=== PATIENT | female | born 1970 | race Caucasian/White ===

== ENCOUNTER 2020-08-11 02:44 | Emergency (ER) | payer OTHER ==
[~2020-08-11] VITALS: Ht 160 cm; Wt 97.5 kg
[~2020-08-11 02:44] MED LIST: PREPARATION H1 EAC1 RECTAL
[2020-08-11] MEDS ORDERED: WELLBUTRIN SR200 MG PO (03:02)
[2020-08-11] MEDS ORDERED: LAMICTAL200 MG PO (03:02)
[2020-08-11 04:57] VITALS: BP 166/95
== END 2020-08-11 04:58 | disposition home or self-care (01) ==
LOC: ER 02:44
DX: R60.0 Localized edema (principal); Z79.899 Other long term (current) drug therapy; Z88.0 Allergy status to penicillin; Z88.2 Allergy status to sulfonamides

== ENCOUNTER 2020-09-01 14:01 | Inpatient (IN) | payer OTHER ==
[~2020-09-01] VITALS: Ht 160 cm; Wt 97.1 kg
[2020-09-01] VITALS (12 sets, daily range): BP systolic 108–135; BP diastolic 50–99
[~2020-09-01 14:01] MED LIST changes: +LAMICTAL200 MG PO; +WELLBUTRIN SR200 MG PO
[2020-09-01 14:54] LABS: BE(vivo) -4.5 mmol/L (-2 to +3); HCO3 17.9 mmol/L (22.0-26.0); PCO2 26.8 mmHg (35.0-45.0); PO2 71.1 mmHg (80.0-100.0); pH 7.443 (7.360-7.450); sO2 95.2 % (92.0-98.0)
[2020-09-01 15:13] LABS: ABSOLUTE NEUTROPHILS 12.2 thou/uL (1.4-8.2); BASOPHILS 0.4 % (0.0-2.0); EOSINOPHILS 0.2 % (0.0-3.0); HEMATOCRIT 41.1 % (37.0-47.0); HEMOGLOBIN 13.9 gm/dL (12.0-15.0); LYMPHOCYTES 13.1 % (24.0-44.0); MCH 29.4 pg (26.0-34.0); MCHC 33.8 g/dL (28.0-37.0); MONOCYTES 8.1 % (1.0-8.0); PLATELET COUNT 307 thou/uL (150-400); POLYS 78.2 % (36.0-66.0); RBC 4.73 mil/uL (4.20-5.00); RDW 12.1 % (10.5-14.5); WBC 15.6 thou/uL (4.0-11.0)
[2020-09-01 15:29] LABS: ALBUMIN 3.4 g/dL (3.4-5.0); TOTAL BILIRUBIN 0.5 mg/dL (0.2-1.0); TOTAL PROTEIN 7.8 g/dL (6.4-8.2); TROPONIN-I 0.41 ng/mL (<0.06)
--- NOTE | 2020-09-01 19:28 | EKG ---
[facility] [place] [address] ELECTROCARDIOGRAM REPORT Name: MORE GERBER Room #: 241-P ADM IN M.R.#: [id number] Admission: 09/01/20 Attend Phys: Izzy Moss MD Discharge: Date of : 70 Report #: [id number] THIS REPORT FOR: cc: Ernesto Perez MD, Jeffrey A. MD Lundgren, Craig H. MD [facility] ~ THIS REPORT FOR: //name// [facility] ED Test Date: 2020-09-01 Test Time: 14:39:06 Pat Name: MORE GERBER Department: Room: 241 Gender: F Mica Washer Gluer: [id number] : 1970 Requested By: Zuleima Kam Order Number: [id number] MD: Naun Doty Measurements Intervals [place] Rate: 153 P: 81 UT: 106 QRS: 148 QRSD: 109 T: 0 QT: 284 QTc: 454 Interpretive Statements Sinus tachycardia Right axis deviation No previous ECG available for comparison Electronically Signed On 09-01-2020 19:28:37 TELEGRAPH MESSENGER by Naun Doty [email or web address] <ELECTRONICALLY SIGNED> By: Naun Doty MD, FAC 09/01/201927 1439 1439 Naun Doty MD, [facility] /EPI
--- NOTE | 2020-09-01 19:38 | NUR ---
PT BROUGHT TO ICU AT 1845, ASSESSMENT DONE AND PT SETTLED IN ROOM, POLICIES AND PROCEDURES WERE EXPLAINED. PT RESTING COMFORTABLE. REPORT GIVEN TO NIGHT RN. NO ACUTE ISSUES. CARDIZEM GTT IN PLACE AND NS. NO HEPARIN GTT UPON ARRIVAL.
[2020-09-01 19:43] LABS: HEMATOCRIT 40.5 % (37.0-47.0); HEMOGLOBIN 13.7 gm/dL (12.0-15.0); MCH 29.5 pg (26.0-34.0); MCHC 33.8 g/dL (28.0-37.0); MCV 87.3 fL (80.0-100.0); RBC 4.64 mil/uL (4.20-5.00); RDW 12.1 % (10.5-14.5)
[2020-09-01 20:56] LABS: PROTIME 10.5 Seconds (9.3-11.4)
[2020-09-02] VITALS (27 sets, daily range): BP systolic 109–135; BP diastolic 54–96
[2020-09-02 05:29] LABS: ABSOLUTE NEUTROPHILS 6.3 thou/uL (1.4-8.2); BASOPHILS 0.6 % (0.0-2.0); HEMATOCRIT 36.9 % (37.0-47.0); HEMOGLOBIN 12.6 gm/dL (12.0-15.0); LYMPHOCYTES 14.1 % (24.0-44.0); MCHC 34.2 g/dL (28.0-37.0); MCV 87.7 fL (80.0-100.0); MONOCYTES 1.5 % (1.0-8.0); PLATELET COUNT 223 thou/uL (150-400); POLYS 83.8 % (36.0-66.0); RBC 4.21 mil/uL (4.20-5.00); RDW 12.2 % (10.5-14.5); WBC 7.5 thou/uL (4.0-11.0)
[2020-09-02 05:58] LABS: CALCIUM 8.8 mg/dL (8.5-10.1); CREATININE 0.8 mg/dL (0.6-1.0); PHOSPHORUS 1.9 mg/dL (2.5-4.9); TOTAL BILIRUBIN 0.4 mg/dL (0.2-1.0); TOTAL PROTEIN 7.4 g/dL (6.4-8.2)
[2020-09-02 06:03] LABS: POTASSIUM 4.6 mmol/L (3.5-5.1)
[2020-09-02 07:10] LABS: SGOT 36 U/L (15-37); SGPT 42 U/L (30-65); TOTAL BILIRUBIN 0.4 mg/dL (0.2-1.0); TOTAL PROTEIN 7.5 g/dL (6.4-8.2)
[2020-09-02 07:27] LABS: DIRECT BILIRUBIN < 0.1 mg/dL (<0.1-0.2)
--- NOTE | 2020-09-02 07:56 | NUR ---
Report received at 1900. Care assumed. Assessments done. Pt denies pain or disocmfort. Continues on O2 at 6l via NC. Reports shortsness of breath with activity. >>>0024 Pt helped to bedside commode, no SOB noted. O2 titrated to 4l. pt is tolerating without complications. >>>0500 Dr James torres on pt, updated on pt condition.See new orders. O2 titrated to 3l NC. Pt is tolerating. willcontinueto monitor.
--- NOTE | 2020-09-02 10:02 | HC ---
[facility] [place] [address] CONSULTATION Name: MORE GERBER Room #: 241-P ADM IN M.R.#: [id number] Admission: 09/01/20 Attend Phys: Izzy Moss MD Discharge: Date of : 70 Report #: [id number] THIS REPORT FOR: cc: Ernesto Perez MD, Jeffrey A. MD Barry, Joseph W. MD ~ DATE OF SERVICE: 09/02/2020 INFECTIOUS DISEASE CONSULTATION ATTENDING PHYSICIAN: Dr. Moss. REASON FOR EVALUATION: COVID-19 infection, complicated by pneumonitis and bilateral pulmonary emboli. HISTORY OF SUBJECTIVE: Chart reviewed, the patient examined. This is a 49-year-old woman without significant medical history, does have urine fibroids for which she takes oral contraceptives; however, she has not been well over the course of the last two to two and half weeks has been ill, was confirmed to have a positive COVID test. She was quarantining, she had biphasic illness seemed to have improved over recent days, had increasing difficulty breathing, some cough that has been nonproductive. It is not clear if she had any significant fevers. She has been more fatigued and weak, prompted evaluation. ABGs borderline hypoxemia on 2 liters with pO2 of 71. She did have elevated white count of 15.6. Chest x-ray was otherwise unremarkable; however, followup CT due to elevated D-dimer of 17.98, showed bilateral pulmonary emboli and did have patchy infiltrates as well consistent with COVID pneumonia. This prompted initiating therapy with heparin. She was started on remdesivir, aztreonam, azithromycin. She is generally lucid. She is on supplemental oxygen on 5 liters per nasal cannula. ALLERGIES: LISTED TO PENICILLIN AND SULFA. CURRENT MEDICATIONS: Include lamotrigine, azithromycin, pantoprazole, insulin, aztreonam, methylprednisolone, single dose of remdesivir. PAST MEDICAL HISTORY: As described above, uterine fibroids, history of bipolar. SOCIAL HISTORY: Nonsmoker, no ethanol. FAMILY HISTORY: Noncontributory. REVIEW OF SYSTEMS: Otherwise, unremarkable. [facility] [address] [place] [address] CONSULTATION Name: MORE GERBER Room #: 241-P [facility] IN ..#: [id number] Admission: 09/01/20 Attend Phys: Izzy Moss MD Discharge: Date of : 70 Report #: [id number] PHYSICAL EXAMINATION: GENERAL: She is alert, cooperative, appropriate. She is in ____ moderate distress. She is lucid. VITAL SIGNS: Temperature 98.3, pulse 113, respirations 23, blood pressure 109/65. SKIN: Warm, dry, no rashes. HEENT: Normocephalic. Extraocular muscles are intact. NECK: Supple. LUNGS: Generally clear breath sounds. HEART: Regular. I do not appreciate any murmur. ABDOMEN: Soft, nontender, nondistended. EXTREMITIES: No cyanosis. GENITOURINARY AND RECTAL: Deferred. LABORATORY DATA: Lactic acid most recently 1.6 is down from 2.0. CBC from yesterday white count of 13.0, H and H 13.7 and 40.5, platelets 276. CT chest, PE protocol noted above, large bilateral pulmonary emboli with right heart strain, multifocal mild alveolar pulmonary infiltrates with ground glass opacity throughout the lungs bilaterally. Procalcitonin 0.1. D-dimer of 17.98. ProBNP of 1960. Electrolytes: Sodium 137, potassium 4.0, chloride 101, bicarbonate is 20, anion gap of 16, BUN and creatinine 9 and 1.0 and glucose of 133. LFTs unremarkable. Albumin 3.4, total protein 7.8. ASSESSMENT: COVID-19 infection, complicated by pneumonitis and pulmonary emboli, although its perhaps outside the window, I think it is not unreasonable to continue remdesivir. We will continue the antibacterials as well. Try to collect a sputum sample, although she states it is generally clear sputum. At this point, she is not overtly toxic, but certainly at risk for additional complications. Thank you, we will follow. <ELECTRONICALLY SIGNED> By: Miky Ramirez MD 09/02/20 1002 0543 0941 Miky Ramirez MD /nt
--- NOTE | 2020-09-02 14:43 | NUR ---
DR. BALDERAS PRESENT. PLAN TO START PO CARDIZEM, THEN TITRATE OFF IV CARDIZEM. RESP LABORED WITH SPEECH. WHEN UP TO TOILET, THEN RETURNING TO BED, PT AWARE OF LABORED RESP. 3L/NC.
--- NOTE | 2020-09-02 20:48 | NUR ---
titrated cardizem from 5-10mg to keep hr in lower 100's. heparin infusing. when getting up to toilet, increasing 02 to 8L/nc temporarily, then returning flow to 3L/nc. shortness of air/ labored breathing improving with speech and when getting up to toilet. pulling 1,300 on incentive spirometer. progressing. remaining in icu however she is cc tele status.
[2020-09-02] MEDS ORDERED: AUROVELA 24 FE1 EACH PO (20:55)
[2020-09-03 05:53] LABS: CALCIUM 9.2 mg/dL (8.5-10.1); CREATININE 0.9 mg/dL (0.6-1.0); DIRECT BILIRUBIN 0.1 mg/dL (<0.1-0.2); PHOSPHORUS 2.9 mg/dL (2.5-4.9); TOTAL BILIRUBIN 0.2 mg/dL (0.2-1.0); TOTAL PROTEIN 7.3 g/dL (6.4-8.2)
--- NOTE | 2020-09-03 07:52 | NUR ---
Patient slept on/off through the night. Neuro remains intact. Had several long conversations about her recent history, plan of care, and discharge planning. Heart rate and rhythm stable sinus tach, no aflutter or ectopy. Continues on Cardizem gtt at 10 mg/hr. Heparin gtt continues per DVT/PE protocol. Labs drawn from AC IV, but were clotted, so still waiting on APTT result. No fever. Patient continues to be breathless with talking. Adequate oxygenation on 3-4 L O2. When patient gets up to BSC, O2 increased to 6L with activity. It takes a minute for her to recover after activity. Voided adequte amounts on BSC. Patient is progressing towards plan of care. See documentation on interventions for assessment details.
[2020-09-03 07:59] VITALS: BP 123/76
[2020-09-03 11:54] VITALS: BP 117/76
--- NOTE | 2020-09-03 14:10 | NUR ---
chart review, covid +, unable to visit with pt rt conserving on ppe. cm visited with spouse jeanine, intro to cm and dcp. spouse reported " live in house, 5 steps to enter home, 25 steps up to bedrooms. independent home. 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 no medical equip. there is basement but she wont have any needs to go down there. laundry room on 1st floor. manange her own medication. no rehab or hh in past"/jeanine. will cont following as needed for dc needs.
[2020-09-03 16:10] VITALS: BP 117/81
--- NOTE | 2020-09-03 19:15 | NUR ---
PT SPENT A MAJORITY OF THE DAY OUT OF BED IN THE CHAIR. PT AMBULATED IN ROOM WITH PT. TOLERATING REGULAR DIET. PT STATES SHE STILL FEELS SHORT OF AIR WITH ACTIVITY. O2 REQUIREMENTS UNCHANGED @ 4L/MIN VIA NC AT REST AND 6L/MIN VIA NC WITH ANY ACTIVITY. PT REMAINS ON CARDIZEM @ 10MG/HR AND HEPARIN DRIP @ 1880 UNITS/HR. PTT WAS THERAPEUTIC @ 1530. WILL RECHECK PTT IN AM PER PROTOCOL. PT PROGRESSING TOWARD GOALS AND IS OPTIMISTIC AND IN GOOD SPIRITS.
[2020-09-03 20:17] VITALS: BP 133/88
--- NOTE | 2020-09-04 03:12 | NUR ---
ASSUMED CARE OF PATIENT AT 1900. VSS, AFEBRILE. C/O NECK/BACK PAIN NOT IMPROVING. DOES NOT TAKE PRESCRIPTION PAIN MEDICATION AT HOME. ORDER OBTAINED FOR TYLENOL AND MUSCLE RELIEF CREAM. REPOSITIONED IN BED. CARDIZEM GTT TITIRATED OFF BY 0100. PATIENT EXPRESSING SOME ANXIETY. DISCUSSED OPTIONS. SETTLED ON HOT TEA, WILL MONITOR. US OF LOWER EXTREMETIES DONE, RESULTS CALLED TO DR ENRIQUEZ.
[2020-09-04 04:23] VITALS: BP 133/76
[2020-09-04 04:56] LABS: HEMATOCRIT 35.6 % (37.0-47.0); HEMOGLOBIN 11.8 gm/dL (12.0-15.0); MCH 29.4 pg (26.0-34.0); MCHC 33.1 g/dL (28.0-37.0); MCV 88.8 fL (80.0-100.0); RDW 12.4 % (10.5-14.5); WBC 16.2 thou/uL (4.0-11.0)
[2020-09-04 05:41] LABS: ALBUMIN 2.8 g/dL (3.4-5.0); ANION GAP 12 mmol/L (7-16); BUN 17 mg/dL (7-18); CALCIUM 8.5 mg/dL (8.5-10.1); CHLORIDE 108 mmol/L (98-107); CO2 21 mmol/L (21-32); CREATININE 0.9 mg/dL (0.6-1.0); DIRECT BILIRUBIN < 0.1 mg/dL (<0.1-0.2); GLUCOSE 200 mg/dL (74-106); PHOSPHORUS 2.3 mg/dL (2.5-4.9); SGOT 15 U/L (15-37); SGPT 46 U/L (30-65); SODIUM 141 mmol/L (136-145); TOTAL BILIRUBIN 0.2 mg/dL (0.2-1.0); TOTAL PROTEIN 6.6 g/dL (6.4-8.2)
[2020-09-04 08:31] VITALS: BP 147/99
[2020-09-04 12:30] VITALS: BP 166/97
--- NOTE | 2020-09-04 12:45 | NUR ---
@ 1200 PT TRANSFERRED VIA W/C WITH O2, MONITOR AND IV TO ROOM 350 ON 3W. PT TOLERATED ACTIVITY WITH MINIMAL DYSPNEA. PT ASSISTED TO TOILET UPON ARRIVAL TO NEW ROOM AND ASSISTED WITH HANDWASHING AND TO BED. MELANIA COLLINS AT BEDSIDE TO RECEIVE PT. LUNCH TO BE TAKEN UPSTAIRS WHEN AVAILABLE.
--- NOTE | 2020-09-04 16:10 | NUR ---
TRANSFERRED FROM ICU. AAOX4. NSR PER TELE. DENIES CP BUT HAS SOA WITH ACTIVITY. NOBODY ABLE SO FAR TO DRAW HER APTT. FALL PRECAUTIONS IN PLACE.
[2020-09-04 16:28] VITALS: BP 152/95
--- NOTE | 2020-09-04 17:44 | NUR ---
MARLIN RN, IV TEAM, STATES MIDLINE, D/T PE'S AND DVT, IS CONTRAINDICATED. SHE RECOMMENDS TICC LINE INSERTION.
--- NOTE | 2020-09-04 18:29 | NUR ---
VASCULAR ACCESS ASSESSED PT FOR LAB DRAW WITH USG. VESSELS TOO DEEP. ALSO DISCUSSED REASON PT CANNOT HAVE MIDLINE OR PICC DUE TO VERY HIGH RISK FOR ADDITIONAL DVT IN ARMS. VERBALIZED UNDERSTANDING DUE TO CURRENT DVT & PE.
[2020-09-04 19:12] VITALS: BP 139/90
--- NOTE | 2020-09-04 20:53 | NUR ---
PER PHARMACY REQUEST CALLED PROVIDER TO ASK HER TO CALL PHARMACY TO CLARIFY ANTICOAGULANT MEDICATIONS. PT SITTING UP IN BED, WATCHING TV WORKING ON COMPUTER. SMILING. SOA WITH TALKING, 02 PER NC 4L. PALE SKIN TONE. PT CALLS FOR ASSISTANCE.
[2020-09-05 03:42] VITALS: BP 140/100
[2020-09-05 05:59] LABS: ALBUMIN 2.8 g/dL (3.4-5.0); CALCIUM 8.4 mg/dL (8.5-10.1); CREATININE 0.8 mg/dL (0.6-1.0); DIRECT BILIRUBIN 0.1 mg/dL (<0.1-0.2); PHOSPHORUS 2.8 mg/dL (2.5-4.9); TOTAL BILIRUBIN 0.2 mg/dL (0.2-1.0); TOTAL PROTEIN 6.2 g/dL (6.4-8.2)
[2020-09-05 07:16] VITALS: BP 134/89
[2020-09-05 11:42] VITALS: BP 133/87
--- NOTE | 2020-09-05 12:25 | HC ---
[facility] [place] [address] CONSULTATION Name: MORE GERBER Room #: 350-P ADM IN .R.#: [id number] Admission: 09/01/20 Attend Phys: Izzy Moss MD Discharge: Date of : 70 Report #: [id number] THIS REPORT FOR: cc: Ernesto Perez MD, Jeffrey A. MD Barnthouse, Michael J. MD ~ HISTORY OF PRESENT ILLNESS: This is a 49-year-old who has a history of uterine fibroids and heavy menstrual cycles. She has been on oral contraception for the last 3-4 months to control of her heavy cycles and was scheduled later this month for hysterectomy at [facility]. She was admitted on 09/01/2020 with acute respiratory distress after having had a positive COVID test. Evaluation has shown pulmonary embolism as well as pneumonia. She also had deep vein thrombophlebitis in her left popliteal and posterior tibial vein. She has also been diagnosed with atrial flutter. She had an increased D-dimer. On admission, her hemoglobin was 13.9, her most recent hemoglobin was 11.8. She has had elevated blood sugars on admission. Her chart and history have been reviewed. From a gynecologic point of view, she has never been . She was just recently diagnosed with uterine fibroids. According to the patient, her uterine size was 12 cm with 2 uterine fibroids, the largest measuring 8 cm. She has had no other gynecologic concerns. She did take control pills many years ago and had no complications. She has a family history of factor V. The patient tested negative for factor V. She has had normal Pap smears. She has no family history of any gynecologic malignancies. She was just today moved out of the Intensive Care Unit to room #350 and is scheduled to be discharged later this week. She indicates she is due to start a new package of control pills at this time. She denies any other known medical problems, has had no previous history of any thrombophlebitis or pulmonary embolism. She has currently been heparinized and will be switched over to oral anticoagulation. IMPRESSION: From a gynecologic point of view, has a history of uterine fibroids with heavy menstrual cycles, although she had stable hemoglobin on admission for the last 3-4 months, she has been on continuous oral contraception. Concern is whether her thrombophlebitis was secondary to her COVID infection or whether it was possibly related to her starting oral contraception. General recommendation is woman with history of thrombophlebitis and pulmonary embolism. We would not recommend taking combination control pill of estrogen and progesterone. However, in the short term as long as she is well anticoagulated, I feel like she could continue on her current control pills that is controlling her heavy bleeding until she is able to undergo her hysterectomy, which will most likely be delayed secondary to her current medical issues. Her option would be to switch her to a progesterone only oral contraception of norethindrone daily on a continuous basis. I have recommended that she follow up with her primary clinical trial leader upon dismissal for further evaluation and treatment. Thank you for allowing me to participate in the patient's care, if we can be of [address] [address] CONSULTATION Name: MORE GERBER Room #: 350-P ADM IN M.R.#: [id number] Admission: 09/01/20 Attend Phys: Izzy Moss MD Discharge: Date of : 70 Report #: [id number] any further assistance while she is in the hospital. Please feel free to contact me. <ELECTRONICALLY SIGNED> By: Chepe Giles MD 09/05/20 1225 1359 1414 Chepe Giles MD /nt
--- NOTE | 2020-09-05 13:31 | NUR ---
ALFREDO reviewed chart and spoke with nursing and attending physician. Pt was transferred to from ICU and remains in Enhanced Isolation due to COVID-19. Pt is afebrile and on 4L of O2. Pt is on IV abx and IV steroids. Pt has completed course of Remdesivir. Discharge home is anticipated in 1-2 days. ALFREDO spoke with pt via phone to discuss discharge needs: home O2. Pt had rest/exercise oximetry completed earlier today and needs 2L of O2 with activity. ALFREDO provided options for [employer]. No preference voiced. ALFREDO confirmed pt's home address and phone number. SW faxed referral to [facility] and notified [facility] liaison of new referral. Need insurance verified. Pt may discharge home on Eliquis or Xarelto. Pt declines need for home health at this time. ALFREDO is following to assist as needed with discharge planning.
[2020-09-05 15:33] VITALS: BP 145/94
--- NOTE | 2020-09-05 18:36 | NUR ---
PATIENT IS ALERT ORIENTED X4. PLEASANT WITH CARE. DOES NOT SEEM TO BE IN PAIN OR DISTRESS. RESPIRATIONS ARE EVEN AND UNLABORED. WILL CONT WITH PLAN OF CARE.
[2020-09-05 19:22] VITALS: BP 141/101
--- NOTE | 2020-09-05 23:56 | NUR ---
PT REQUESTED TO SHOWER, PROVIDED CHAIR TO REST IN AND IV SITES COVERED. PT SOA WITH EXERTION AND TALKING. O2 PRN 2L AFTER AMBULATION OR ACTIVITY. IV MEDS PROVIDED. LOVENOX GIVEN. PT VERBALIZED PLAN FOR DC IN AM. LUNGS DIMINISHED.
[2020-09-06 03:20] VITALS: BP 157/93
[2020-09-06 06:44] LABS: CALCIUM 8.8 mg/dL (8.5-10.1); CREATININE 0.9 mg/dL (0.6-1.0); DIRECT BILIRUBIN 0.1 mg/dL (<0.1-0.2); PHOSPHORUS 3.1 mg/dL (2.5-4.9); POTASSIUM 3.8 mmol/L (3.5-5.1); TOTAL BILIRUBIN 0.3 mg/dL (0.2-1.0); TOTAL PROTEIN 6.6 g/dL (6.4-8.2)
[2020-09-06 07:50] VITALS: BP 152/90
--- NOTE | 2020-09-06 09:34 | 2DMMODE ---
[facility] [place] [address] 2 D/M-MODE ECHOCARDIOGRAM Name: MORE GERBER Room #: 350-P ADM IN M.R.#: [id number] Admission: 09/01/20 Attend Phys: Izzy Moss MD Discharge: Date of : 70 Report #: [id number] THIS REPORT FOR: cc: Ernesto Perez MD, Jeffrey A. MD Santiago, Patrick MD [facility] ~ APPROVED REPORT Study performed: 09/03/2020 09:57:31 EXAM: Comprehensive 2D, Doppler, and color-flow Echocardiogram Patient Location: ICU Room #: 241 Status: routine BSA: 1.97 HR: 109 bpm BP: 123/76 mmHg Rhythm: Tachycardia Other Information Study Quality: Adequate Indications Pulmonary Embolism Pulmonary Hypertension Covid 19 2D Dimensions RVDd: 47.04 mm IVSd: 10.97 (7-11mm) LVOT Diam: 19.18 (18-24mm) LVDd: 37.49 mm PWd: 11.45 (7-11mm) Ascending Ao: 23.75 (22-36mm) LVDs: 24.12 (25-40mm) Aortic Root: 28.76 mm IVC: 26.00 mm Tricuspid Valve TR Peak Diego.: 3.37 m/s TR Peak Gr.: 45.37 mmHg PA Pressure: 55.00 mmHg Left Ventricle The left ventricle is normal size. There is normal LV segmental wall motion. There is normal left ventricular wall thickness. The left ventricular systolic function is normal. The left ventricular [facility] [address] [place] [address] 2 D/M-MODE ECHOCARDIOGRAM Name: MORE GERBER Shayne Room #: 350-P ADM IN M.R.#: [id number] Admission: 09/01/20 Attend Phys: Izzy Moss, Discharge: Date of : 70 Report #: [id number] ejection fraction is within the normal range. LVEF is 55-60%. Grade I - abnormal relaxation pattern. Right Ventricle Right ventricle is dilated. The right ventricular systolic function is normal. Atria The left atrium size is normal. Right atrium is dilated. Aortic Valve The aortic valve is normal in structure. No aortic regurgitation is present. There is no aortic valvular stenosis. Mitral Valve The mitral valve is normal in structure. Trace mitral regurgitation. No evidence of mitral valve stenosis. Tricuspid Valve The tricuspid valve is normal in structure. There is mild tricuspid regurgitation. Estimated PAP 55mmHg. There is moderate pulmonary hypertension. Pulmonic Valve The pulmonary valve is normal in structure. Trace pulmonic regurgitation. Great Vessels The aortic root is normal in size. IVC is dilated and collapses <50% with inspiration. Pericardium There is no pericardial effusion. <Conclusion> Normal left ventricle size, wall thickness and systolic function Ejection fraction 60% Grade 1 diastolic dysfunction Right atrium mildly dilated with normal systolic function Right atrium mildly dilated Mild tricuspid valve insufficiency Moderate pulmonary hypertension [facility] [address] [place] [address] 2 D/M-MODE ECHOCARDIOGRAM Name: MORE GERBER Room #: 350-P ADM IN M.R.#: [id number] Admission: 09/01/20 Attend Phys: Izzy Moss, Discharge: Date of : 70 Report #: [id number] PA systolic pressure estimated at 55 mmHg No pericardial effusion <ELECTRONICALLY SIGNED> By: Agustin Valentine MD, FACC 09/03/20 1245 1245 44 Agustin Valentine MD, FACC /INF
[2020-09-06 12:25] VITALS: BP 142/80
--- NOTE | 2020-09-06 14:52 | NUR ---
on-going assessment: CM REVIEWED CHART AND SPOKE WITH ATTENDING WHO STATES PT WILL LIKELY STAY UNTIL TOMORROW. PT IS NEEDING 2L OXYGEN WITH EXERTION. ALFREDO YESTERDAY SENT SCRIPT TO [facility] AND THEY DROPPED OFF A PORTABLE TANK FOR PT IN HER ROOM. WILL SEE HOW PATIENT DOES OVERNIGHT AND DETERMINE OXYGEN NEEDS. CM WILL CONTINUE TO FOLLOW TO ASSIST NEEDED.
[2020-09-06 15:52] VITALS: BP 139/86
--- NOTE | 2020-09-06 17:00 | NUR ---
IN PLEASANT MOOD. PLAN ON GOING HOME TOMORROW PER DR VALENTINO. PATIENT HAS BEEN OFF O2 MOST OF THE DAY. WILL CONT WITH PLAN OF CARE.
[2020-09-06 19:25] VITALS: BP 149/96
--- NOTE | 2020-09-07 01:37 | NUR ---
ASSESSED AT START OF SHIFT. PT A&OX4 CONCERN ABOUT DISCHARGE PLANS. INSTRUCTED PT ABOUT PROGRESS TO SPEND THE NIGHT AND MONITOR O2. PT 95 -96% ON RA. DENIES PAIN, DIZZINESS, N/V. AD ZACKERY IN ROOM. LOVENOX SHOT GIVEN. CALL LIGHT AT REACH AND WILL CONT TO MONITOR.
[2020-09-07 04:19] VITALS: BP 149/96
[2020-09-07 06:04] LABS: HEMOGLOBIN 13.1 gm/dL (12.0-15.0); MCHC 33.5 g/dL (28.0-37.0); MCV 86.4 fL (80.0-100.0); RBC 4.52 mil/uL (4.20-5.00); RDW 12.6 % (10.5-14.5); WBC 11.7 thou/uL (4.0-11.0)
[2020-09-07 07:40] VITALS: BP 146/100
[2020-09-07] MEDS ORDERED: ZINC SULFATE 2220 MG PO (12:51)
[2020-09-07] MEDS ORDERED: VITAMIN D325 MC1 PO (12:51)
[2020-09-07] MEDS ORDERED: PROTONIX 20 MG20 M1 PO (12:51)
[2020-09-07] MEDS ORDERED: XARELTO20 MG PO (12:51)
[2020-09-07] MEDS ORDERED: CARDIZEM CD 18180 M3 PO (12:51)
[2020-09-07] MEDS ORDERED: ACEROLA C500 MG PO (12:51)
[2020-09-07] MEDS ORDERED: CEFDINIR300 MG PO (12:51)
[2020-09-07] MEDS ORDERED: XARELTO15 MG PO (12:51)
[2020-09-07] MEDS ORDERED: VITAMIN B-1100 M2 PO (12:51)
[2020-09-07 13:24] VITALS: BP 146/100
--- NOTE | 2020-09-07 14:22 | NUR ---
ON-GOING ASSESSMENT: CM REVIEWED CHART AND SPOKE WITH ATTENDING. PT HAS ORDERS TO D/C TODAY AND WANTED TO MAKE SURE HER MEDICATION XARELTO IS HELPED COVERED BY HER INSURANCE. CM GOT A COPY OF THE SCRIPT AND SENT TO PTS PHARMACY ([facility] [place]). CM RECEIVED A CALL BACK FROM PHARMACIST WHO REPORTS IT WILL COST TOTAL OF ABOUT 262 FOR BOTH SCRIPTS WRITTEN. MATT ATTEMPTED TO CONTACT PT ON UNIT BUT BEDSIDE RN REPORTS THAT PATIENT HAD LEFT THE UNIT HER CAME AND SAID THEY HAVE THE SAME INSURANCE AND HE IS ON THAT MEDICATION AND INSURANCE HELPS COVER IT AND THEY WILL BE ABLE TO AFFORD IT. CM ATTEMPTED TO REACH PT ON HER CELL BUT NO ANSWER. CM ALSO LEFT VM FOR HER . [facility] HAD PREVIOUSLY DELIVERED A PORTABLE OXYGEN TANK FOR PATIENT TO TAKE HOME IF NEEDING OXYGEN WITH EXERTION. PER BEDSIDE RN PT IS NOT REQUIRING THE HOME OXYGEN AND HAS BEEN ON ROOM AIR. PT REPORTS SHE HAS BEEN OFF OXYGEN FOR 48 HOURS AND DOES NOT WANT THE HOME OXYGEN OR NEED ANY LONGER.
--- NOTE | 2020-09-07 16:32 | NUR ---
PATIENT DISCHARGED HOME EARLIER. SHE WAS ALRT ORIENTED X4. GERALD NOT COMPLAIN OF PAIN OR DISTRESS. DISCHARGED HOME WITH PRIVATE CAR.
--- NOTE | 2020-09-09 16:58 | HC ---
[facility] [place] [address] CONSULTATION Name: MORE GERBER Room #: 350-[facility] IN M.R.#: [id number] Admission: 09/01/20 Attend Phys: Izzy Moss MD Discharge: 09/07/20 Date of : 70 Report #: [id number] THIS REPORT FOR: cc: Ernesto Perez MD, Jeffrey A. MD McKittrick, Richard James MD ~ REQUESTING PHYSICIAN: Dr. Adolfo Michelle and ____. REASON FOR CONSULTATION: Finding of submassive saddle emboli with right heart strain and also finding of left popliteal DVT. HISTORY OF PRESENT ILLNESS: The patient is a 49-year-old female who was having some shortness of breath about a week before being admitted to the hospital. She tested COVID positive after loss of smell. She was admitted on 09/01. She is in ICU on high flow oxygen and has not greatly improved. She is currently on Lovenox. No prior clots. Before that, she had an ultrasound of her leg about 2 weeks prior to admission, which have been negative, the one here did show a clot. She had been on oral contraceptives about the last 3-4 months to help control her bleeding and delay surgery until after the COVID pandemic settles down. Dr. Chepe Giles had seen the patient, mentioned that it might be laguerre and I would agree to switch to a progesterone-only medication. Note that her period has been much better since she has been on this medication. The patient, at this time, denies any fevers, chills, nausea, vomiting, blood in urine or stool, arm or leg swelling, skin rash or bleeding. PAST MEDICAL HISTORY: Notable for the bipolar, the uterine fibroids, the bleeding. In the hospital, she has had some atrial flutter. She had a saddle embolus and also had a left popliteal DVT. 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 Her ____ was a system integration engineer. He has factor V Leiden and has had clots lifelong, but it sounds like perhaps a lower dose of Xarelto. FAMILY HISTORY: Father had factor V Leiden and clots. Mother has rheumatoid arthritis. I think she has several siblings, no specific illnesses. No children. No pets. In the past, she has enjoyed quilting. MEDICATIONS: At this time currently include dexamethasone 6 mg daily, IV cefdinir 300 mg b.i.d., Lovenox 100 mg b.i.d., Tylenol p.r.n., bupropion 200 mg at bedtime, lamotrigine 200 mg at bedtime, diltiazem 120 mg daily, thiamine 100 mg daily, cholecalciferol 1000 units daily, vitamin C 500 mg daily, pantoprazole 20 mg daily, insulin on a sliding scale, zinc 200 mg t.i.d., Dextrose and other PRNs. LABORATORY DATA: Significant and include electrolytes and creatinine and liver [address] [address] CONSULTATION Name: MORE GERBER Shayne Room #: 350-P DIS IN M.R.#: [id number] Admission: 09/01/20 Attend Phys: Izzy Moss MD Discharge: 09/07/20 Date of : 70 Report #: [id number] functions that are normal. Baseline INR and APTT were near normal. White count currently 11.7, hemoglobin 13.1, platelets 273, MCV 86.4. Differential mostly normal, antithrombin III 111, normal; protein C activity 133, normal; protein S 61 slightly low below, I think at 65. APC resistance 2.7, normal. DRVVT pending. Anticardiolipin IgM mildly elevated at 21. Anticardiolipin IgG less than 9, normal. Beta 2 microglobulin pending. Lupus reference pending. Imaging of note here included ultrasound of lower extremities find acute-appearing DVT involving left popliteal vein and posterior tibial vein, negative right leg. CTA done on 09/01, described as showing large bilateral pulmonary embolus with right heart strain, ____ alveolar pulmonary infiltrates. ADDENDUM: Described a cystic lesion in the proximal right humerus, likely benign process. They recommended follow up right shoulder in 6 months. PHYSICAL EXAMINATION: GENERAL: The patient appears her stated age. MOOD: She is pleasant, conversant. NEUROLOGIC: Speech and thought pattern normal. Moving all extremities. LUNGS: Appear clear anteriorly. No rhonchi, wheezes or stridor. LYMPHATICS: No enlarged lymph nodes in the supraclavicular, cervical, axillary or inguinal region. ABDOMEN: Slightly obese. No masses. EXTREMITIES: Without clubbing, cyanosis or edema. ASSESSMENT AND PLAN: 1. Large bilateral and saddle embolus with right heart strain. Agree with anticoagulation, should probably receive at least 6 if not considering 12 months of therapy. Also depends whether we find a provoked or an ongoing cause. We will await additional hypercoagulable workup. Could transition NOAC, would also consider switching to progesterone-only hormones if possible. Also, we will ask the nurses place this in the MARS, I do not see it listed. 2. COVID pneumonia, improving. Defer to Pulmonary. 3. Mood disorder, defer to multiple agents and people. 4. Followup: Would suggest the patient follow up in about 2 weeks for Tele-Health visit. May be also need followup of bone lesion seen on CAT scan. <ELECTRONICALLY SIGNED> By: Zohaib Ross MD 09/09/20 [id number] [id number] Zohaib Ross MD /nt
== END 2020-09-07 14:12 | disposition home or self-care (01) | DRG 871 ==
LOC: ER 14:01 → EROBS 16:13 → ICU 16:13 → 3W 09-04 12:39
PROVIDERS: Physician Assistant; ADMIT Internal Medicine; ATTEND Internal Medicine
PROC: XW033E5 Introduction of Remdesivir Anti-infective into Peripheral Vein, Percutaneous Approach, New Technology Group 5 (ICD-10-PCS; principal; 2020-09-01)
DX: A41.9 Sepsis, unspecified organism (principal); U07.1 COVID-19; I26.92 Saddle embolus of pulmonary artery without acute cor pulmonale; J96.01 Acute respiratory failure with hypoxia; J12.89 Other viral pneumonia; I48.92 Unspecified atrial flutter; D68.69 Other thrombophilia; I82.432 Acute embolism and thrombosis of left popliteal vein; R65.20 Severe sepsis without septic shock; E66.9 Obesity, unspecified; R73.9 Hyperglycemia, unspecified; D25.9 Leiomyoma of uterus, unspecified; I48.91 Unspecified atrial fibrillation; T38.0X5A Adverse effect of glucocorticoids and synthetic analogues, initial encounter; F31.9 Bipolar disorder, unspecified; Z88.0 Allergy status to penicillin; Z88.1 Allergy status to other antibiotic agents; Z88.2 Allergy status to sulfonamides; Z79.899 Other long term (current) drug therapy; Z68.37 Body mass index [BMI] 37.0-37.9, adult; Y92.89 Other specified places as the place of occurrence of the external cause
CPT/HCPCS: 10078; 10203; 10879

== ENCOUNTER 2020-09-10 13:48 | Emergency (ER) | payer OTHER ==
[~2020-09-10] VITALS: Ht 190.5 cm; Wt 97.5 kg
[~2020-09-10 13:48] MED LIST changes: +ACEROLA C500 MG PO; +AUROVELA 24 FE1 EACH PO; +CARDIZEM CD 18180 M3 PO; +CEFDINIR300 MG PO; +PROTONIX 20 MG20 M1 PO; +VITAMIN B-1100 M2 PO; +VITAMIN D325 MC1 PO; +XARELTO15 MG PO; +XARELTO20 MG PO; +ZINC SULFATE 2220 MG PO
[2020-09-10 15:31] LABS: ABSOLUTE NEUTROPHILS 11.5 thou/uL (1.4-8.2); BASOPHILS 0.2 % (0.0-2.0); EOSINOPHILS 2.3 % (0.0-3.0); LYMPHOCYTES 13.4 % (24.0-44.0); MCH 29.4 pg (26.0-34.0); MCHC 33.3 g/dL (28.0-37.0); MCV 88.2 fL (80.0-100.0); PLATELET COUNT 324 thou/uL (150-400); POLYS 77.1 % (36.0-66.0); RBC 4.77 mil/uL (4.20-5.00); RDW 12.8 % (10.5-14.5); WBC 14.9 thou/uL (4.0-11.0)
--- NOTE | 2020-09-10 15:33 | EKG ---
[facility] [address] [place] [address] ELECTROCARDIOGRAM REPORT Name: MORE GERBER Room #: ELIZABETH Mcintosh#: [id number] Admission: Attend Phys: Discharge: Date of : 70 Report #: [id number] <ELECTRONICALLY SIGNED> By: Agustin Valentine MD, FACC 09/10/20 1533 1513 1513 Agustin Valentine MD, FACC /EPI
[2020-09-10 15:39] LABS: ANION GAP 9 mmol/L (7-16); BUN 12 mg/dL (7-18); CALCIUM 9.4 mg/dL (8.5-10.1); CHLORIDE 103 mmol/L (98-107); CO2 27 mmol/L (21-32); GLUCOSE 119 mg/dL (74-106); SODIUM 139 mmol/L (136-145)
[2020-09-10 15:47] LABS: TROPONIN-I <0.06 ng/mL (<0.06)
[2020-09-10] MEDS ORDERED: ROXICODONE5 M2 PO (18:38)
[2020-09-10] MEDS ORDERED: LEVOFLOXACIN750 MG PO (18:38)
[2020-09-10 19:01] VITALS: BP 132/78
== END 2020-09-10 19:22 | disposition home or self-care (01) ==
LOC: ER 13:48
PROVIDERS: Emergency Medicine
DX: J18.9 Pneumonia, unspecified organism (principal); Z79.899 Other long term (current) drug therapy; Z88.0 Allergy status to penicillin; Z88.2 Allergy status to sulfonamides

== ENCOUNTER → 2020-10-11 | Outpatient (CLI) | payer OTHER ==
[~2020-10-11] MED LIST changes: +LEVOFLOXACIN750 MG PO; +ROXICODONE5 M2 PO
== END ==
LOC: RAD 09:30
PROVIDERS: ATTEND Pediatrics
DX: R91.8 Other nonspecific abnormal finding of lung field (principal)

== ENCOUNTER → 2021-04-08 | Outpatient (CLI) | payer OTHER ==
--- NOTE | 2021-04-08 11:56 | 2DMMODE ---
[facility] [place] [address] 2 D/M-MODE ECHOCARDIOGRAM Name: MORE GERBER Shayne Room #: REG [facility]#: [id number] Admission: 04/08/21 Attend Phys: Thaddeus Kaur MD Discharge: Date of : 70 Report #: [id number] THIS REPORT FOR: cc: Margot Castro,Agustin Fernandes MD [facility] ~ APPROVED REPORT Study performed: 04/08/2021 10:19:25 EXAM: Comprehensive 2D, Doppler, and color-flow Echocardiogram Patient Location: Out-Patient Room #: 1 Status: routine BSA: 1.99 HR: 80 bpm BP: 136/80 mmHg Rhythm: NSR Other Information Study Quality: Good Indications Dyspnea 2D Dimensions RVDd: 25.52 mm IVSd: 10.18 (7-11mm) LVOT Diam: 20.23 (18-24mm) LVDd: 44.76 mm PWd: 7.73 (7-11mm) Ascending Ao: 27.35 (22-36mm) LVDs: 28.55 (25-40mm) Left Atrium: 32.75 (27-40mm) Aortic Root: 26.32 mm IVC: 12.00 mm Volumes Left Atrial Volume (Systole) Single Plane 4CH: 34.55 mL Single Plane 2CH: 35.69 mL LA ESV Index: 20.00 mL/m2 Aortic Valve AoV Peak Diego.: 1.44 m/s AO Peak Gr.: 8.25 mmHg LVOT Max P.59 mmHg LVOT Max V: 0.95 m/s VISHAL Vmax: 2.12 cm2 [facility] [address] [place] [address] 2 D/M-MODE ECHOCARDIOGRAM Name: MORE GERBER Room #: REG [facility]#: [id number] Admission: 04/08/21 Attend Phys: Rogelio Cancino Discharge: Date of : 70 Report #: [id number] Mitral Valve E/A Ratio: 1.1 MV Decel. Time: 206.50 ms MV E Max Diego.: 0.77 m/s MV A Diego.: 0.71 m/s MV PHT: 59.89 ms IVRT: 101.50 ms Pulmonary Valve PV Peak Diego.: 1.09 m/s PV Peak Gr.: 4.74 mmHg Pulmonary Vein P Vein S: 0.65 m/s P Vein A: 0.32 m/s P Vein D: 0.47 m/s P Vein A Dur.: 92.3 msec P Vein S/D Ratio: 1.38 Left Ventricle The left ventricle is normal size. There is normal LV segmental wall motion. There is normal left ventricular wall thickness. Left ventricular systolic function is normal. The left ventricular ejection fraction is within the normal range. LVEF is 55-60%. The left ventricular diastolic function is normal. Right Ventricle The right ventricle is normal size. The right ventricular systolic function is normal. Atria The left atrium size is normal. The right atrium size is normal. Aortic Valve The aortic valve is normal in structure. No aortic regurgitation is present. There is no aortic valvular stenosis. Mitral Valve The mitral valve is normal in structure. There is no mitral valve regurgitation noted. No evidence of mitral valve stenosis. Tricuspid Valve The tricuspid valve is normal in structure. There is no tricuspid valve regurgitation noted. Pulmonic Valve The pulmonary valve is normal in structure. There is no pulmonic [facility] [address] [place] [address] 2 D/M-MODE ECHOCARDIOGRAM Name: MORE GERBER Room #: REG [facility]#: [id number] Admission: 04/08/21 Attend Phys: Rogelio Cancino Discharge: Date of : 70 Report #: [id number] valvular regurgitation. Great Vessels The aortic root is normal in size. IVC is normal in size and collapses >50% with inspiration. Pericardium There is no pericardial effusion. <Conclusion> Normal left ventricular size/wall thickness Ejection fraction 55% Grade 1 diastolic dysfunction Normal right ventricular size/function Normal atrial size Color-flow upper study was performed of the aortic/mitral/tricuspid/pulmonary valve Normal aortic/mitral valve structure and function No evidence of tricuspid valve insufficiency Normal aortic root size No pericardial effusion <ELECTRONICALLY SIGNED> By: Agustin Valentine MD, FACC 04/08/21 1156 1156 1156 Agustin Valentine MD, [facility] /INF
== END ==
LOC: CV 10:59
PROVIDERS: ATTEND Pediatrics
DX: R06.02 Shortness of breath (principal)

== ENCOUNTER 2021-07-05 22:58 | Emergency (ER) | payer OTHER ==
[~2021-07-05] VITALS: Ht 160 cm; Wt 95.3 kg
[2021-07-05 23:32] VITALS: BP 136/94
== END 2021-07-06 00:52 | disposition home or self-care (01) ==
LOC: ER 22:58
DX: D36.7 Benign neoplasm of other specified sites (principal); J45.909 Unspecified asthma, uncomplicated; Z88.0 Allergy status to penicillin; Z88.2 Allergy status to sulfonamides; Z79.899 Other long term (current) drug therapy

== ENCOUNTER 2021-08-01 09:09 | Emergency (ER) | payer OTHER ==
[~2021-08-01] VITALS: Ht 160 cm; Wt 97.5 kg
[2021-08-01 09:13] VITALS: BP 138/85
[2021-08-01 09:48] LABS: BASOPHILS 0.8 % (0.0-2.0); EOSINOPHILS 0.8 % (0.0-3.0); HEMATOCRIT 43.9 % (37.0-47.0); HEMOGLOBIN 14.9 gm/dL (12.0-15.0); LYMPHOCYTES 24.8 % (24.0-44.0); MCH 29.9 pg (26.0-34.0); MCHC 33.9 g/dL (28.0-37.0); MCV 88.3 fL (80.0-100.0); MONOCYTES 7.2 % (1.0-8.0); PLATELET COUNT 383 thou/uL (150-400); POLYS 66.4 % (36.0-66.0); RBC 4.97 mil/uL (4.20-5.00); RDW 12.8 % (10.5-14.5)
[2021-08-01 09:50] LABS: CREATININE 0.9 mg/dL (0.6-1.0); POTASSIUM 4.6 mmol/L (3.5-5.1)
[2021-08-01 10:00] LABS: ALBUMIN 3.8 g/dL (3.4-5.0); TOTAL BILIRUBIN 0.4 mg/dL (0.2-1.0); TOTAL PROTEIN 7.5 g/dL (6.4-8.2)
[2021-08-01] MEDS ORDERED: SLYND4 MG PO (10:35)
[2021-08-01] MEDS ORDERED: ZYRTEC10 M5 PO (10:36)
[2021-08-01] MEDS ORDERED: LATANOPROST 0.2.5 ML OPHTHALMIC (10:38)
[2021-08-01 12:00] VITALS: BP 129/84
--- NOTE | 2021-08-01 15:35 | EKG ---
[address] [place] [address] ELECTROCARDIOGRAM REPORT Name: MCKAYLA GERBERJIMENEZ Bella Room #: 170-11 ADM IN M.R.#: [id number] Admission: 08/01/21 Attend Phys: Izzy Moss MD Discharge: Date of : 70 Report #: [id number] [facility] ED Test Date: 2021-08-01 Test Time: 09:24:39 Pat Name: MORE GERBER Department: Room: 170 Gender: F Director Operations Broadcast: [id number] : 1970 Requested By: Pascale Bullock Order Number: [id number] MD: Naun Doty Measurements Intervals [place] Rate: 80 P: 68 RI: 145 QRS: 42 QRSD: 97 T: 29 QT: 378 QTc: 436 Interpretive Statements Sinus rhythm Normal tracing Compared to ECG 09/10/2020 15:13:17 Poor R-wave progression no longer present Electronically Signed On 08-01-2021 15:35:52 CDT by Naun Doty [email or web address] <ELECTRONICALLY SIGNED> By: Naun Doty MD, [facility] 08/01/21 1535 [id number] Naun Doty MD, FACC /EPI
[2021-08-01 16:00] VITALS: BP 121/82
[2021-08-01 18:39] VITALS: BP 144/100
[2021-08-01] MEDS ORDERED: BACLOFEN 10MG T10 MG PO (18:54)
[2021-08-01] MEDS ORDERED: FLONASE 0.05%50 MCG NARES (19:08)
[2021-08-01] MEDS ORDERED: AZITHROMYCIN500 MG PO (19:08)
[2021-08-01] MEDS ORDERED: MECLIZINE HCL12.5 MG PO (19:08)
[2021-08-01] MEDS ORDERED: CEFDINIR300 MG PO (19:08)
[2021-08-01 19:22] VITALS: BP 144/100
== END 2021-08-01 19:32 | disposition home or self-care (01) ==
LOC: ER 09:09 → EROBS 11:14 → ER 19:32
PROVIDERS: Emergency Medicine
DX: R42 Dizziness and giddiness (principal); Z20.822 Contact with and (suspected) exposure to COVID-19; J45.909 Unspecified asthma, uncomplicated; Z79.899 Other long term (current) drug therapy; Z88.0 Allergy status to penicillin; Z88.2 Allergy status to sulfonamides

== ENCOUNTER → 2021-08-27 | Outpatient (CLI) | payer OTHER ==
[~2021-08-27] MED LIST changes: +AZITHROMYCIN500 MG PO; +BACLOFEN 10MG T10 MG PO; +FLONASE 0.05%50 MCG NARES; +LATANOPROST 0.2.5 ML OPHTHALMIC; +MECLIZINE HCL12.5 MG PO; +SLYND4 MG PO; +ZYRTEC10 M5 PO
== END ==
LOC: ULTRA 08:50
DX: E04.1 Nontoxic single thyroid nodule (principal)